=== PATIENT | female | born 1930 | race Caucasian/White ===

== ENCOUNTER 2016-07-05 05:42 | Inpatient (IN) | payer MEDICARE ==
--- NOTE | ~2016-07-05 | EKG ---
PATIENT: MADHAV LUCERO UNIT #: [id number] Ventricular Rate: 76 BPM Atrial Rate: 76 BPM P-R Interval: 214 ms QRS Duration: 84 ms Q-T Interval: 374 ms QTC Calculation(Bezet): 420 ms P [place]: 73 degrees Calculated R [place]: 21 degrees Calculated T [place]: 78 degrees Diagnosis Line: Sinus rhythm with 1st degree A-V block Diagnosis Line: Otherwise normal ECG Diagnosis Line: When compared with ECG of 31-MAR-2016 19:55, Diagnosis Line: No significant change was found Diagnosis Line: Confirmed by CASSI KHAN MD ([id number]) on Diagnosis Line: 07/06/2016 10:59:11 PM INTERPRETING MD: DONI
--- NOTE | ~2016-07-05 | CR72 ---
[facility] A Service of [facility] RADIOLOGY TEXT RESULTS PATIENT: MADHAV LUCERO LOCATION: [place] [address] : 29 UNIT #: [id number] AGE: [address]: Humaira Stanley MD SEX: F ORDER DR: [id number] [facility] [address] [place], [place] [address] [id number] MR#: [id number] Acc #: [id number] NAME: MADHAV LUCERO. : 1930 SEX: F STUDY DATE/TIME: 07/05/2016 5:01 UNIT: [facility] ROOM: STUDY DESCRIPTION: CR Chest Single View Portable Attending Physician: Nayana Pitts M.D. Ordering Physician: Nayana Pitts M.D. Primary Care Physician: Nadia Garcia M.D. MEDICAL IMAGING REPORT This report is preliminary unless electronic signature is present EXAM AP portable chest 07/05/2016 HISTORY 86-year-old female in the ED with new onset shortness of air, fever and weakness. Sepsis. TECHNIQUE AP portable chest x-ray. FINDINGS Exam shows low lung volumes with chronic scarring or atelectasis in the lung bases, unchanged since 03/28/2016. Cardiomegaly is stable. Pulmonary vascularity is normal. No visible airspace consolidation or pleural effusion. IMPRESSION No active disease. No change since 03/28/2016. Dictated by... Alex Davis M.D. THIS IS AN ELECTRONICALLY VERIFIED REPORT Alex Davis M.D. at 07/05/2016 10:18 PM PRINCE/rupa TD: 07/05/2016 06:42 JOB #: [id number] MEDICAL IMAGING REPORT Page 1 of 1 COPY
--- NOTE | ~2016-07-05 | HP ---
Unit #: [id number] #: [id number] Patient: MADHAV LUCERO [id number] [address] [place], [place] [address] [id number] I MR#: [id number] NAME: MADHAV LUCERO. ROOM: 577 Age: 86 Sex: F Admission Date: 07/05/2016 : 1930 Attending Physician: Humaira Stanley M.D. Primary Care Physician: Nadia Garcia M.D. HISTORY AND PHYSICAL CHIEF COMPLAINT High fever. HISTORY OF PRESENTING ILLNESS This is an 86-year-old female with multiple medical problems who is not able to provide any history. She is very lethargic. She has two daughters sitting in the room. Most of the history was taken from them. Patient went to see Dr. Hollis because of dysuria on Saturday and was prescribed antibiotics and Pyridium. Patient started taking those medications. On Saturday, she went out in the morning for the foot doctor and was doing okay until evening when she started feeling very lethargic and very weak. She could not get up and could not ambulate and her temperature was checked and it was 102. Patient was brought to ER and is being admitted for possible sepsis. Patient has had multiple UTIs in the past. Patient's last admission to this hospital was March 2016. There is no history of chest pain. No history of abdominal pain. No history of nausea or vomiting. No history of diarrhea. PAST MEDICAL HISTORY Please note patient does have significant past medical history. 1. Coronary artery disease, status post percutaneous coronary intervention and stent placement in 2004. 2. Iron deficiency anemia. 3. History of colon cancer. 4. History of colonoscopy done on April 01, 2016, which showed no large polyps. 5. Hyperlipidemia. 6. Diabetes mellitus type 2. 7. Hypertension. 8. Hypothyroidism. 9. Morbid obesity. 10. History of skin cancer. 11. GERD. 12. Cervical disk disease and patient wears neck collar most of the time. 13. Nonsmoker. PAST SURGICAL HISTORY History of hysterectomy, history of bilateral knee replacement, history of cardiac stent placement in 2004, history of bilateral mastectomy, history of neck stenosis with 2 neck surgeries in neck collar most of the time, history of cholecystectomy, and history of cataract surgery. SOCIAL HISTORY Patient lives at home with her daughter. There is no history of smoking, Unit #: [id number] #: [id number] Patient: MADHAV LUCERO alcohol, or drug abuse. According to patient's daughter, she is pretty active at home and was walking yesterday. She does have chronic back pain. PRIMARY CARE PROVIDER Dr. Hollis. FAMILY HISTORY Patient's mother at the age of 78 with cardiac disease. Dad had a stroke. One of the brothers has brain cancer and another brother has lung cancer. ALLERGIES Patient is allergic to oxycodone, penicillin, codeine, clotrimazole, miconazole, and Levaquin. REVIEW OF SYMPTOMS As per history of presenting illness. PHYSICAL EXAMINATION Patient is being evaluated in room 577. VITAL SIGNS: Blood pressure 89/71, respiratory rate 18, pulse is 72, temperature 101.3, and oxygen saturation is 93%. HEENT: Head is normocephalic. GENERAL APPEARANCE: Patient is very lethargic, but she does wake up and goes back to sleep. NECK: Patient has as cervical neck collar on. She does have a severe cervical degenerative disk disease. She has had two surgeries in the past and patient has been told that she cannot go through another one. CHEST: Seems to be fair air entry. Decreased at the bases. CVS: S1 and S2 positive. Regular rhythm. ABDOMEN: Obese and soft. No tenderness. No organomegaly. EXTREMITIES: Trace edema. Otherwise, pulses are palpable. 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 DIAGNOSTIC STUDIES LABORATORY: Workup done in ER shows troponin less than 0.05. Lactic acid 2.3. Sodium 131, potassium 4.7, chloride 96, BUN 24, creatinine 1.5, and calcium 10.4. WBC 6.3, hemoglobin 9.3, hematocrit 27.7, and platelet count of 190. Lactic acid 2.9. Urinalysis shows trace leukocyte esterase. IMAGING: Chest x-ray was done. No active disease. ASSESSMENT AND PLAN Patient is being admitted to telemetry unit at [facility] with diagnoses of: 1. Sepsis. 2. Probable urinary tract infection. 3. Hypertension. 4. Acute renal insufficiency. 5. Anemia. 6. Diabetes mellitus type 2. 7. Hypothyroidism. 8. History of hypertension. 9. History of coronary artery disease, status post stent placement. PLAN Admit to telemetry unit. IV Merrem and IV Rocephin are being started. Infectious disease has been consulted. Urine culture and blood culture Unit #: [id number] #: [id number] Patient: MADHAV LUCERO are to be done. Home medications have been reviewed at length. Will do Accu-Chek a.c. and h.s. Will hold insulin at this time. A speech eval will be done before starting the diet. IV fluids are being given. Sepsis protocol is being started. Med rec has been reviewed. Please refer to progress note for further orders. Discussed with patient's daughter at length. Code status was discussed. According to daughter, she is full code. Dictated by Ariadne Del Real TD: 07/05/2016 12:49 JOB #: [id number] HISTORY AND PHYSICAL Page 1 of 1 X Humaira Stanley MD X HISTORY AND PHYSICAL
--- NOTE | ~2016-07-05 | CO ---
Unit #: [id number] #: [id number] Patient: ORIANA LUCERO [id number] [address] [place], [place] [address] [id number] I MR#: [id number] NAME: ORIANA LUCERO ROOM: 577 Age: 86 Sex: F Admission Date: 07/05/2016 : 1930 Attending Physician: Humaira Stanley M.D. Primary Care Physician: Nadia Garcia M.D. Requesting Physician: Humaira Stanley M.D. Consultation Date: 07/05/2016 CONSULTATION REPORT REASON FOR CONSULTATION Possible sepsis. HISTORY OF PRESENT ILLNESS Oriana Lucero is a very pleasant 86-year-old female with multiple medical problems who is currently not very ambulatory, and she is an extremely poor historian. History was obtained through review of the ER notes, chart, and a long discussion with nursing staff. Patient was admitted apparently because of fever, weakness, and hypotension. She had a single temperature spike of 101.3 in the ER and a single blood pressure reading of 96/52 in the ER. Subsequent to that, she had not had any episode of fever or hypotension. According to the notes, she is being treated for a UTI, but urinalysis is absolutely clear. The patient does not have any symptoms of UTI. She does not have in a Mendoza catheter. She also denies any cough or fever, although there is something in the chart stating that she has pneumonia. Patient's chest x-ray is absolutely clear. She has no cough or sputum production. Currently, she is wide awake and alert. Other than generalized weakness, she has no other symptoms at all. Epidemiologic history is negative. PAST MEDICAL HISTORY 1. Coronary artery disease. 2. Hypertension. 3. Cancer. 4. Thyroid disease. 5. Diabetes. 6. Heart murmur. 7. Previous MS. 8. Skin cancer. 9. Breast cancer. 10. Gastroesophageal reflux disease. 11. Colon cancer. 12. Kidney stones. 13. Frequent UTIs. PAST SURGICAL HISTORY 1. Cholecystectomy. 2. Hysterectomy. 3. Right knee replacement. 4. Cardiac stenting. 5. Disk surgery x2. 6. Bilateral mastectomies. 7. Tonsillectomy. 8. Parotid gland surgery on the right side. Unit #: [id number] #: [id number] Patient: ORIANA LUCERO HOME MEDICATIONS According to the reconciliation chart: 1. Anastrazole. 2. Metoprolol. 3. Lisinopril. 4. Magnesium oxide. 5. Aspirin. 6. Hydrochlorothiazide. 7. Zyloprim. 8. Omeprazole. 9. Januvia. 10. Levothyroxine. 11. Gabapentin. 12. Lortab. 13. Vitamin D3. 14. Levemir. 15. Vitamin B12. 16. Folic acid. 17. According to the ER note, she was also taking Zithromax for UTI. DRUG ALLERGIES Oxycodone, penicillins, levofloxacin, codeine, clotrimazole, and miconazole. She has been given ceftriaxone which she has tolerated very well without any problems. FAMILY HISTORY Unknown. SOCIAL HISTORY She lives at home. No history of alcohol, drug, or tobacco abuse at this time. REVIEW OF SYSTEMS Positive for generalized weakness, single temperature spike of 101, and transient hypotension. She has no headache, mental status changes, cough, chest pain, abdominal pain, dysuria, frequency, urgency, hematuria, etc. PHYSICAL EXAMINATION GENERAL: An elderly, obese, white female who is awake, alert, and in no acute distress. VITAL SIGNS: Stable. Temperature is 98.6, blood pressure 184/69, heart rate 72, and respirations 18. HEENT: She has a soft neck collar because of C-spine problems. Oral mucosa is normal. There is no thrush. She has no major IV lines. EXTREMITIES: She has edema bilaterally and morbid obesity. LUNGS: Clear to percussion and auscultation. CARDIOVASCULAR: Heart sounds are normal. ABDOMEN: Grossly obese, soft, and nontender. No rebound or guarding. Bowel sounds are normal. NEUROLOGIC: Nonfocal. She is able to move all four extremities and higher mental functions are intact. DIAGNOSTIC STUDIES LABORATORY: Sodium is 134, potassium 4.3, chloride 99, CO2 of 27, BUN 22, creatinine 1.2, and glucose 197. Lactic acid 2.9. Urinalysis shows no evidence of urinary tract infection. White count is 6.3, hemoglobin 9.3, hematocrit 27.7, platelets 190,000, and neutrophils 87%. Creatinine on Unit #: [id number] #: [id number] Patient: ORIANA LUCERO arrival was 1.5. Today, it is 1.2. IMAGING: Chest x-ray is clear. IMPRESSION I doubt patient is septic. She has no evidence of urinary tract infection or pneumonia clinically or by investigations. Transient hypotension may have been due to dehydration since her creatinine improved with fluids. Currently, cultures are pending, and patient is stable. RECOMMENDATION Pending culture results, will continue ceftriaxone monotherapy as a broad spectrum antibiotic and plan to discontinue antibiotic if the cultures remain negative and patient continues to improve. Will also check serum procalcitonin level. I have asked the nursing staff to call me immediately if any of the blood cultures are positive. Further recommendations will follow. Dictated by... Ariadne Ruth/jenna TD: 07/05/2016 21:15 JOB #: [id number] CONSULTATION REPORT Page 1 of 1 X Krishna Holman MD X CONSULTATION REPORT
--- NOTE | ~2016-07-05 | DS ---
Unit #: [id number] #: [id number] Patient: MADHAV LUCERO [id number] [address] [address] [id number] I MR#: [id number] NAME: MADHAV LUCERO. ROOM: 577 Age: 86 Sex: F Admission Date: 07/05/2016 : 1930 Discharge Date: 07/09/2016 Attending Physician: Humaira Stanley M.D. Primary Care Physician: Nadia Garcia M.D. DISCHARGE SUMMARY CONSULTATION Dr. Krishna Holman from Infectious Disease. FINAL DIAGNOSES 1. Sepsis which is resolved. 2. Urinary tract infection. 3. Hypotension which is resolved. 4. Possible left ear otitis media. 5. History of coronary artery disease, status post percutaneous coronary intervention and stent placement in 2004. 6. History of iron deficiency anemia. 7. History of colon cancer. 8. History of hyperlipidemia. 9. History of diabetes mellitus type 2. 10. Hypertension. 11. Hypothyroidism. 12. History of cervical disc disease. She wears a neck collar most of the time. 13. Nonsmoker. DISCHARGE MEDICATIONS 1. Omnicef 300 mg p.o. b.i.d. until July 12, 2016. 2. Magnesium oxide 400 mg b.i.d. 3. Januvia 100 mg daily. 4. Anastrazole 1 mg daily. 5. Metoprolol 12.5 mg p.o. b.i.d., hold if systolic blood pressure is less than 110. 6. Insulin 10 units subcutaneous daily. 7. Zyloprim 100 mg daily. 8. Aspirin 81 mg daily. 9. Omeprazole 40 mg daily. 10. Levothyroxine 88 mcg daily. 11. Vitamin B12 at 1000 mcg daily. 12. Folic acid 1 mg daily. 13. Vitamin D 50,000 units weekly. DIAGNOSTIC STUDIES LABORATORY ON DISCHARGE: WBC 3.7, hemoglobin 7.9, hematocrit 24.1, and platelet count of 172,000. Occult blood in the stool is negative. Ferritin level is 425, total iron is 88, and B12 is 1234. TSH is 2.73. Procalcitonin level 0.1. Lactic acid 2.9 on admission. Blood cultures were negative. HOSPITAL COURSE Unit #: [id number] #: [id number] Patient: MADHAV LUCERO is an 86-year-old female who was admitted to the hospital with lethargy and high fever. Patient was admitted to [facility]. Patient was hypotensive and temperature was 101.3. Patient was thought to have a urinary tract infection, and IV antibiotics were started. Patient was seen by Dr. Holman, and workup was done. Patient started complaining of left ear pain on July 05, 2016. Patient had wax in the ear, and it was difficult to visualize. There was some mild (1) . It was thought that patient could have acute otitis media. Patient is doing much better at this time. Patient's antibiotics have been changed to p.o. Patient is stable to go to rehab facility. I have discussed with patient's daughters at length about plan of care, and they do verbalize understanding. PHYSICAL EXAMINATION ON DISCHARGE VITAL SIGNS: Blood pressure is 121/63, respiratory rate 17, pulse 79, temperature 98, and oxygen saturation is 95%. HEENT: Head is normocephalic. CHEST: Fair air entry, decreased at the bases. CARDIOVASCULAR: Regular rhythm. DISCHARGE INSTRUCTIONS 1. Patient is discharged to [facility] in stable condition. 2. Medications as per medication reconciliation. 3. Dr. Acuna to follow patient at the senior living. 4. Physical therapy and occupational therapy at rehab. 1. Dictated by... Ariadne Del Real TD: 07/09/2016 15:31 JOB #: [id number] DISCHARGE SUMMARY Page 1 of 1 X Humaira Stalney MD X DISCHARGE SUMMARY
[2016-07-05 05:19] LABS: POC - CKMB <1.0 ng/mL (0.0-7.9); POC - TROPONIN <0.05 ng/mL (<=0.05)
[2016-07-05 05:23] LABS: BASOPHIL% 0.8 % (0-2.5); EOSINOPHIL# 0.1 X10e3 (0-0.7); EOSINOPHIL% 1.3 % (0.0-7.0); HEMATOCRIT 27.7 % (35.0-45.0); HEMOGLOBIN 9.3 gm/dL (12.0-16.0); LYMPHOCYTE# 0.2 X10e3 (1.0-3.5); LYMPHOCYTE% 2.9 % (17.0-45.0); MEAN CELL VOLUME 103.2 FL (83-96); MEAN CORPUSCULAR HEMOGLOBIN 34.5 PG (28-34); MEAN CORPUSCULAR HGB CONC 33.4 g/dL (30-36); MONOCYTE# 0.5 X10e3 (0-1.0); MONOCYTE% 7.7 % (3.0-12.0); NEUTROPHIL# 5.5 X10e3 (1.5-7.1); NEUTROPHIL% 87.3 % (40-75); PLATELET COUNT 190 X10e3 (140-420); RED BLOOD COUNT 2.69 X10e (3.90-5.30); RED CELL DISTRIBUTION WIDTH 22.2 % (11.0-15.5); WHITE BLOOD COUNT 6.3 X10e3 (4.0-10.5)
[2016-07-05 05:24] LABS: DIFF IND YES
[2016-07-05 05:31] LABS: PROTHROMBIN TIME (PATIENT) 10.1 SECONDS (9.6-11.5)
[~2016-07-05 05:42] MED LIST: AMARYL PO; ARIMIDEX1 MG PO; ASPIRIN EC81 M1 PO; ASPIRIN PO; ASPIRIN81 M1 PO; AZITHROMYCIN250 MG PO; BACTRIM DS TABL1 TA1 PO; CLARINEX5 MG PO; COZAAR PO; COZAAR100 MG PO; DEMADEX PO; FAMVIR500 MG PO; FOLIC ACID1 MG PO; FOSAMAX PO; GABAPENTIN300 M2 PO; GABAPENTIN300 MG PO; GLUCOPHAGE XR500 MG PO; HYDROCHLOROTHIA25 MG PO; HYDROCODON-ACE1 EAC7 PO; IRON325 ( 65 ) PO; JANUVIA PO; LASIX20 MG PO; LEVEMIR; LEVEMIR FL100 UNIT/1 SUBQ; LEVEMIR SUBQ; LEVOTHYROXINE88 MCG PO; LIPITOR40 MG PO; LISINOPRIL5 MG PO; MAGNESIUM400 M1 PO; MAGOX 400400 MG PO; METFORMIN HCL500 M1 PO; METOPROLOL TAR25 MG PO; MIRALAX17 G2 PO; MIRALAX17 GM PO; MONODOX100 MG PO; NEURONTIN300 MG PO; NIFEREX-150 F1 UDCAP PO; NIFEREX-150 FOR1 CA1; NORVASC10 MG PO; NOVOLOG; NOVOLOG100 U/ML; OMEPRAZOLE40 M1 PO; OMEPRAZOLE40 MG PO; PRAVACHOL20 MG PO; PRILOSEC40 MG PO; REMERON15 MG PO; SYNTHROID PO; SYNTHROID0.1 MG PO; SYNTHROID88 MCG PO; TOPROL XL PO; TORSEMIDE10 MG PO; VITAMIN B-1000 MCG/1 IJ; VITAMIN D2000 UNIT PO; VITAMIN D250000 UNIT PO; ZOCOR PO; ZOFRAN PO; ZYLOPRIM PO; ZYLOPRIM100 MG PO; [UNRECOGNIZED DRUG - OTHER] PO
[2016-07-05 05:44] LABS: ALBUMIN SERUM 3.6 g/dL (3.5-5.0); BILIRUBIN, DIRECT 0.1 mg/dL (0.0-0.2); BILIRUBIN,INDIRECT 0.7 mg/dL (0.0-0.9); BILIRUBIN,TOTAL 0.8 mg/dL (0.2-2.0); CALCIUM SERUM 10.4 mg/dL (8.4-10.2); CREATININE SERUM 1.5 mg/dL (0.6-1.4); POTASSIUM 4.7 mmol/L (3.5-5.1); PROTEIN TOTAL SERUM 6.2 g/dL (6.0-8.3)
[2016-07-05 05:46] LABS: ANISOCYTOSIS MOD; PLATELET ESTIMATE NORMAL (NORMAL)
[2016-07-05 06:09] LABS: URINE SOURCE CLEAN CATCH
[2016-07-05 06:14] LABS: URINE BLOOD NEG (NEG); URINE COLOR DK YELLOW; URINE GLUCOSE NEG (NEG); URINE KETONE NEG (NEG); URINE LEUKOCYTE ESTERASE TRACE (NEG); URINE NITRATE POS (NEG); URINE PROTEIN NEG (NEG); URINE SPECIFIC GRAVITY 1.014 (1.003-1.035)
[2016-07-05 06:16] LABS: URBCS1 AUWI 0-2 /[HPF] (0-2); URINE BACTERIA AUWI NEG (NEGATIVE); URINE SQUAMOUS EPITHELIAL CELL NONE SEEN /[HPF]; UWBCS1 AUWI 0-2 (0-5)
[2016-07-05 06:18] LABS: CULTURE INDICATED? NO; URINE BILIRUBIN NEG (NEG)
[2016-07-05] MEDS ORDERED: METOPROLOL TART25 MG PO (06:39)
[2016-07-05] MEDS ORDERED: ANASTROZOLE1 MG PO (06:39)
[2016-07-05] MEDS ORDERED: ASPIRIN81 M2 PO (06:40)
[2016-07-05] MEDS ORDERED: MAG-OXIDE400 MG PO (06:40)
[2016-07-05] MEDS ORDERED: LISINOPRIL5 MG PO (06:40)
[2016-07-05] MEDS ORDERED: ZYLOPRIM100 MG PO (06:41)
[2016-07-05] MEDS ORDERED: JANUVIA PO (06:41)
[2016-07-05] MEDS ORDERED: HYDROCHLOROTHIA25 MG PO (06:41)
[2016-07-05] MEDS ORDERED: OMEPRAZOLE40 M1 PO (06:41)
[2016-07-05] MEDS ORDERED: GABAPENTIN300 MG PO (06:42)
[2016-07-05] MEDS ORDERED: LEVOTHYROXINE88 MCG PO (06:42)
[2016-07-05] MEDS ORDERED: LORTAB 5-325 M1 EACH PO (06:43)
[2016-07-05] MEDS ORDERED: LEVEMIR SUBQ (06:44)
[2016-07-05] MEDS ORDERED: VITAMIN D350000 UNIT PO (06:44)
[2016-07-05] MEDS ORDERED: VITAMIN B122500 MCG PO (06:45)
[2016-07-05] MEDS ORDERED: FOLIC ACID1 MG PO (06:45)
[2016-07-05 07:27] LABS: POC - CKMB <1.0 ng/mL (0.0-7.9); POC - TROPONIN <0.05 ng/mL (<=0.05)
[2016-07-05 15:16] LABS: BUN/CREATININE RATIO 18.33; CALCIUM SERUM 9.6 mg/dL (8.4-10.2); CREATININE SERUM 1.2 mg/dL (0.6-1.4); GLOM FILT RATE Estimated 40.6 mL/min (>60); POTASSIUM 4.3 mmol/L (3.5-5.1)
[2016-07-06 06:33] LABS: HEMATOCRIT 24.2 % (35.0-45.0); HEMOGLOBIN 7.8 gm/dL (12.0-16.0); MEAN CELL VOLUME 103.8 FL (83-96); MEAN CORPUSCULAR HEMOGLOBIN 33.6 PG (28-34); MEAN CORPUSCULAR HGB CONC 32.4 g/dL (30-36); MEAN PLATELET VOLUME 12.2 FL (6.5-11.5); RED BLOOD COUNT 2.34 X10e (3.90-5.30); RED CELL DISTRIBUTION WIDTH 22.1 % (11.0-15.5)
[2016-07-06 19:26] LABS: HEMATOCRIT 23.8 % (35.0-45.0); HEMOGLOBIN 7.6 gm/dL (12.0-16.0)
[2016-07-07 06:17] LABS: HEMATOCRIT 22.4 % (35.0-45.0); HEMOGLOBIN 7.4 gm/dL (12.0-16.0); MEAN CELL VOLUME 102.8 FL (83-96); MEAN CORPUSCULAR HGB CONC 33.1 g/dL (30-36); MEAN PLATELET VOLUME 11.8 FL (6.5-11.5); RED BLOOD COUNT 2.18 X10e (3.90-5.30); RED CELL DISTRIBUTION WIDTH 22.2 % (11.0-15.5); WHITE BLOOD COUNT 3.1 X10e3 (4.0-10.5)
[2016-07-07 06:48] LABS: CALCIUM SERUM 9.4 mg/dL (8.4-10.2); CREATININE SERUM 0.8 mg/dL (0.6-1.4); GLOM FILT RATE Estimated 66.3 mL/min (>60); POTASSIUM 4.1 mmol/L (3.5-5.1)
[2016-07-08 06:56] LABS: BASOPHIL% 1.1 % (0-2.5); EOSINOPHIL# 0.2 X10e3 (0-0.7); EOSINOPHIL% 4.5 % (0.0-7.0); HEMATOCRIT 24.8 % (35.0-45.0); LYMPHOCYTE# 0.6 X10e3 (1.0-3.5); LYMPHOCYTE% 17.5 % (17.0-45.0); MEAN CELL VOLUME 103.2 FL (83-96); MEAN CORPUSCULAR HEMOGLOBIN 33.3 PG (28-34); MEAN CORPUSCULAR HGB CONC 32.3 g/dL (30-36); MEAN PLATELET VOLUME 11.6 FL (6.5-11.5); MONOCYTE# 0.4 X10e3 (0-1.0); MONOCYTE% 11.8 % (3.0-12.0); NEUTROPHIL# 2.2 X10e3 (1.5-7.1); NEUTROPHIL% 65.1 % (40-75); PLATELET COUNT 142 X10e3 (140-420); RED CELL DISTRIBUTION WIDTH 21.4 % (11.0-15.5); WHITE BLOOD COUNT 3.3 X10e3 (4.0-10.5)
[2016-07-08 06:57] LABS: DIFF IND NO
[2016-07-08 07:48] LABS: IRON SERUM 88 ug/dL (28-170); TOTAL IRON BINDING CAPACITY 218 ug/dL (269-535); TRANSFERRIN 156 mg/dL (192-382); TRANSFERRIN SATURATION 40 % (20-50)
[2016-07-08 08:04] LABS: FOLATE (FOLIC ACID) >23.6 ng/mL (>5.8)
[2016-07-09 06:30] LABS: HEMATOCRIT 24.1 % (35.0-45.0); HEMOGLOBIN 7.9 gm/dL (12.0-16.0); MEAN CELL VOLUME 102.4 FL (83-96); MEAN CORPUSCULAR HEMOGLOBIN 33.4 PG (28-34); MEAN CORPUSCULAR HGB CONC 32.6 g/dL (30-36); MEAN PLATELET VOLUME 11.4 FL (6.5-11.5); RED BLOOD COUNT 2.36 X10e (3.90-5.30); RED CELL DISTRIBUTION WIDTH 21.6 % (11.0-15.5); WHITE BLOOD COUNT 3.7 X10e3 (4.0-10.5)
== END 2016-07-09 18:32 | DRG 872 ==
LOC: CED 05:42 → CEDOF 06:35 → C5C 08:28
PROVIDERS: Emergency Medicine; Hospitalist; Nurse Practitioner Family; Physician Assistant Medical
DX: A41.9 Sepsis, unspecified organism (principal); D61.818 Other pancytopenia; N39.0 Urinary tract infection, site not specified; E66.01 Morbid (severe) obesity due to excess calories; E86.0 Dehydration; D50.9 Iron deficiency anemia, unspecified; E11.9 Type 2 diabetes mellitus without complications; I10 Essential (primary) hypertension; I25.10 Atherosclerotic heart disease of native coronary artery without angina pectoris; Z95.5 Presence of coronary angioplasty implant and graft; Z85.038 Personal history of other malignant neoplasm of large intestine; Z86.010 Personal history of colon polyps; E78.5 Hyperlipidemia, unspecified; E03.9 Hypothyroidism, unspecified; K21.9 Gastro-esophageal reflux disease without esophagitis; M50.30 Other cervical disc degeneration, unspecified cervical region; Z85.828 Personal history of other malignant neoplasm of skin; Z96.653 Presence of artificial knee joint, bilateral; Z90.49 Acquired absence of other specified parts of digestive tract; Z98.49 Cataract extraction status, unspecified eye; N28.9 Disorder of kidney and ureter, unspecified; Z90.710 Acquired absence of both cervix and uterus; I25.2 Old myocardial infarction; Z79.82 Long term (current) use of aspirin; Z88.0 Allergy status to penicillin; H66.92 Otitis media, unspecified, left ear; Z68.38 Body mass index [BMI] 38.0-38.9, adult
CPT/HCPCS: 36415; 71010; 80048; 80076; 81003; 82274; 82308; 82553; 82607; 82728; 82746; 82947; 83540; 83550; 83605; 84443; 84484; 85014; 85018; 85025; 85027; 85610; 85730; 87040; 87086; 92610; 93005; 94760; 96365; 96368; 97110; 97163; 97167; 97530; 99285; G8978-GP; G8979-GP; G8987-GO; G8988-GO; G8996-GN; G8997-GN; G8998-GN; J0456; J0696; J1650; J1815; J2185